=== PATIENT | male | born 1975 | race African-American/Black ===

== ENCOUNTER 2017-06-28 02:42 | Emergency (ER) | payer SELFPAY ==
[~2017-06-28] VITALS: Ht 185.4 cm; Wt 99.8 kg
[2017-06-28 02:55] VITALS: BP 139/78
[2017-06-28] MEDS ORDERED: SULF1TAB24 PO (03:26)
--- NOTE | 2017-06-28 03:26 | PHYS DOC ---
Past Medical History Past Medical History: No Pertinent History Past Surgical History: No Surgical History Alcohol Use: Occasionally Drug Use: Marijuana Adult General Chief Complaint Chief Complaint: MULTIPLE COMPLAINTS HPI HPI Patient is a 41 year old male who presents with left sided neck problem. He has 3 day history of insect bite to left neck now more painful & swollen & appears red. Small amount of clear drainage when he squeezes it. Denies fevers /chills, nausea/vomiting, no other similar lesions. Review of Systems Review of Systems Constitutional: Denies fever or chills HENT: Denies nasal congestion or sore throat Respiratory: Denies cough or shortness of breath Cardiovascular: Denies chest pain GI: Denies abdominal pain, nausea, vomiting Musculoskeletal: Denies back pain or joint pain Integument: Reports skin lesion to neck Neurologic: Denies headache Allergies Allergies Allergies Coded Allergies Type Severity Reaction Last Updated Verified No Known Drug Allergies 06/28/17 No Physical Exam Physical Exam Constitutional: Well developed, well nourished, no acute distress, non-toxic appearance. HENT: Normocephalic, atraumatic, bilateral external ears normal, oropharynx moist, nose normal. Eyes: conjunctiva normal, no discharge. Neck: supple, no stridor. left anterior neck with 4 cm area of mild erythema & warmth surrounding an insect bite, no fluctuance or induration. Cardiovascular: no edema. Lungs & Thorax: no respiratory distress. Abdomen: nondistended. Skin: skin changes to neck as above Extremities: No deformity Neurologic: Alert and oriented X 3 Current Patient Data Vital Signs Vital Signs Date Time Temp Pulse Resp B/P (MAP) Pulse Ox O2 Delivery O2 Flow Rate FiO2 06/28/17 02:55 99.1 92 20 98 Room Air 99.1 EKG EKG [] Radiology/Procedures Radiology/Procedures [] Course & Med Decision Making Course & Med Decision Making Pertinent Labs and Imaging studies reviewed. (See chart for details) Patient presents with very mild cellulitis to left neck likely from folliculitis or insect bite. No abscess requiring I&D. Gave prescription for antibiotics. Advised patient that he will likely need ENT to perform I&D if not improving due to location & surrounding vasculature. Recommend tylenol/ ibuprofen for pain. Come back for high fever, spreading erythema/warmth/ swelling, any otherwise worsening condition. Discharged home in stable condition. [] Dragon Disclaimer Dragon Disclaimer This electronic medical record was generated, in whole or in part, using a voice recognition dictation system. Departure Departure Impression: Primary Impression: Insect bite, infected Disposition: 01 HOME, SELF-CARE Condition: STABLE Referrals: NO PCP (PCP) Patient Instructions: Cellulitis, [id number] Additional Instructions: You were seen in the emergency department today for skin infection. Please take the prescribed antibiotic. Follow up with primary care doctor. Come back for high fever, spreading redness/warmth/swelling, any otherwise worsening condition. Scripts Sulfamethoxazole/Trimethoprim (BACTRIM DS TABLET) 1 Each Tablet 1 TAB PO BID, #14 TAB Prov: JOSE M BRIONES MD 06/28/17 JOSE M BRIONES MD Jun 28, 2017 03:26
== END 2017-06-28 03:49 | disposition home or self-care (01) ==
LOC: ER 02:42
DX: S10.96XA Insect bite of unspecified part of neck, initial encounter (principal); L08.9 Local infection of the skin and subcutaneous tissue, unspecified; W57.XXXA Bitten or stung by nonvenomous insect and other nonvenomous arthropods, initial encounter; Y93.89 Activity, other specified; Y92.89 Other specified places as the place of occurrence of the external cause; Y99.8 Other external cause status
CPT/HCPCS: 99283